=== PATIENT | male | born 1965 | race Caucasian/White ===

== ENCOUNTER 2018-07-02 11:54 | Emergency (ER) | payer OTHER ==
[~2018-07-02] VITALS: Ht 188 cm; Wt 96.2 kg
[2018-07-02] MEDS ORDERED: COZAAR100 MG (12:36)
[2018-07-02] MEDS ORDERED: TIVICAY50 MG (12:36)
[2018-07-02] MEDS ORDERED: DESCOVY 200-251 EACH (12:36)
[2018-07-02] MEDS ORDERED: PREZCOBIX 8001 EACH (12:37)
== END 2018-07-02 16:58 | disposition home or self-care (01) ==
LOC: ER 11:54
DX: L03.115 Cellulitis of right lower limb (principal)

== ENCOUNTER 2018-12-01 19:27 | Emergency (ER) | payer OTHER ==
[~2018-12-01] VITALS: Ht 188 cm; Wt 106.1 kg
[~2018-12-01 19:27] MED LIST: COZAAR100 MG; DESCOVY 200-251 EACH; PREZCOBIX 8001 EACH; TIVICAY50 MG
[2018-12-01] MEDS ORDERED: SYMTUZA 800-151 EACH PO (20:16)
== END 2018-12-01 20:49 | disposition home or self-care (01) ==
LOC: ER 19:27
DX: H92.02 Otalgia, left ear (principal)

== ENCOUNTER 2020-10-13 06:00 | Day surgery (SDC) | payer OTHER ==
[~2020-10-13 06:00] MED LIST changes: +SUSTIVA200 MG PO; +SYMTUZA 800-151 EACH PO
[2020-10-13] MEDS ORDERED: RECTICARE30 GM TOP (08:26)
[2020-10-13] MEDS ORDERED: PERCOCET 5-3251 EACH PO (08:26)
== END 2020-10-13 13:20 | disposition home or self-care (01) ==
LOC: CIR.AMB 06:00
PROVIDERS: ATTEND Surgery
DX: C20 Malignant neoplasm of rectum (principal); A63.0 Anogenital (venereal) warts; Z20.822 Contact with and (suspected) exposure to COVID-19

== ENCOUNTER 2020-11-13 05:47 | Day surgery (SDC) | payer OTHER ==
[~2020-11-13 05:47] MED LIST changes: +PERCOCET 5-3251 EACH PO; +RECTICARE30 GM TOP
[2020-11-13] MEDS ORDERED: PERCOCET 5-3251 EACH PO (11:19)
== END 2020-11-13 15:05 | disposition home or self-care (01) ==
LOC: CIR.AMB 05:47
PROVIDERS: ATTEND Surgery
DX: C21.1 Malignant neoplasm of anal canal (principal); Z20.822 Contact with and (suspected) exposure to COVID-19
CPT/HCPCS: 36561; C1751

== ENCOUNTER 2021-07-27 05:40 | Day surgery (SDC) | payer OTHER ==
[2021-07-27] MEDS ORDERED: ULTRACET PO (08:46)
== END 2021-07-27 10:40 | disposition home or self-care (01) ==
LOC: CIR.AMB 05:40
PROVIDERS: ATTEND Surgery
DX: C21.1 Malignant neoplasm of anal canal (principal); Z20.822 Contact with and (suspected) exposure to COVID-19

== ENCOUNTER 2022-08-19 10:44 | Emergency (ER) | payer OTHER ==
[~2022-08-19] VITALS: Ht 185.4 cm; Wt 109.8 kg
[~2022-08-19 10:44] MED LIST changes: +ULTRACET PO
[2022-08-19] MEDS ORDERED: CRESTOR5 MG (10:59)
[2022-08-19] MEDS ORDERED: ZETIA10 MG (11:00)
[2022-08-19] MEDS ORDERED: CIPROFLOXA500 MG/5 M PO (15:46)
[2022-08-19] MEDS ORDERED: TAMS0.4C PO (15:46)
== END 2022-08-19 16:00 | disposition home or self-care (01) ==
LOC: ER 10:44
DX: N23 Unspecified renal colic (principal); B20 Human immunodeficiency virus [HIV] disease; Z85.9 Personal history of malignant neoplasm, unspecified; Z88.6 Allergy status to analgesic agent; N20.0 Calculus of kidney